=== PATIENT | male | born 1995 | race Caucasian/White ===

== ENCOUNTER 2023-08-19 05:02 | Emergency (ER) | payer SELFPAY ==
[2023-08-19 05:07] VITALS: BP 105/64; PULSE 58; RESP 16; TEMP 97.7; BMI 26.5
[2023-08-19] MEDS ORDERED: ACETAMINOPHEN 325 MG TABLET (FP) ONE (05:26)
[2023-08-19] MEDS: ACETAMINOPHEN 500 MG TABLET (FP) PO ONE (05:30)
[2023-08-19 05:56] LABS: BASO % 0.4 % (0-2.0); EOS % 0.7 % (0-4.5); HEMOGLOBIN 14.4 GM/dL (11.7-16.9); LYMPH % 34.7 % (8-40); MCH 31.9 pg (25.7-33.7); MCHC 34.4 g/dl (32.0-35.9); MEAN CELL VOLUME 92.8 fl (80-96); MEAN PLT VOLUME 8.2 fl (7.5-11.1); MONO % 9.3 % (3.8-10.2); NEUT % 54.9 % (42.8-82.8); PLATELET COUNT 199 10^3/uL (134-434); RBC 4.53 M/mm3 (4.00-5.60); RDW 13.6 % (11.9-15.9); WHITE BLOOD COUNT 8.1 K/mm3 (4.0-10.0)
[2023-08-19 06:16] LABS: POTASSIUM 3.6 mmol/L (3.5-5.1)
[2023-08-19 06:18] LABS: CALCIUM 8.9 mg/dL (8.5-10.1)
[2023-08-19 06:19] LABS: BLOOD UREA NITROGEN 14.4 mg/dL (7-18)
[2023-08-19 06:21] LABS: CREATININE 0.7 mg/dL (0.55-1.3)
[2023-08-19 06:23] LABS: TOT PROT 6.7 g/dl (6.4-8.2)
== END 2023-08-19 06:37 | disposition home or self-care (01) ==
LOC: JER 05:02
DX: R10.9 Unspecified abdominal pain (principal)
CPT/HCPCS: 36415; 80053; 83690; 85025

== ENCOUNTER 2023-08-19 18:20 | Emergency (ER) | payer SELFPAY ==
[2023-08-19 18:28] VITALS: BP 112/65; PULSE 66; RESP 18; TEMP 98; BMI 26.5
== END 2023-08-19 21:11 | disposition home or self-care (01) ==
LOC: JER 18:20
DX: F32.A Depression, unspecified (principal); Z59.00 Homelessness unspecified; R45.851 Suicidal ideations
CPT/HCPCS: 99282-25